=== PATIENT | female | born 1945 | race Caucasian/White ===

== ENCOUNTER 2019-11-11 08:52 | Observation (INO) ==
--- NOTE | 2019-10-22 16:21 | PAT Medication Instructions ---
Medication Instructions Date of Service October 22, 2019 Home Medications acetaminophen [Tylenol Arthritis Pain] 650 mg PO Q12H amlodipine 5 mg PO QPM aspirin [Aspir-81] 81 mg PO QPM atorvastatin 20 mg PO 3XWK carvedilol 6.25 mg PO BID chlorthalidone 50 mg PO QAM diclofenac sodium 2 g TOPICAL QID PRN losartan 75 mg PO HS multivitamin 1 tab PO QPM nitroglycerin [Nitrostat] 0.4 mg SUBLINGUAL UD PRN Continue as directed nitroglycerin [Nitrostat] 0.4 mg SUBLINGUAL UD PRN atorvastatin 20 mg PO 3XWK STOP taking 24 hours before surgery diclofenac sodium 2 g TOPICAL QID PRN DO NOT take the morning of surgery chlorthalidone 50 mg PO QAM Take morning of surgery With a small sip of water, OTHERWISE NOTHING TO EAT OR DRINK AFTER MIDNIGHT: acetaminophen [Tylenol Arthritis Pain] 650 mg PO Q12H (okay to take up to 4 hours prior to surgery if needed) carvedilol 6.25 mg PO BID Take evening before surgery acetaminophen [Tylenol Arthritis Pain] 650 mg PO Q12H amlodipine 5 mg PO QPM aspirin [Aspir-81] 81 mg PO QPM carvedilol 6.25 mg PO BID losartan 75 mg PO HS Other Notes If you have any questions please call us at [phone] or [phone] or [phone] or [phone]
--- NOTE | 2019-10-24 14:41 | Anesthesiology Consultation ---
Date of Service October 24, 2019 Assessment & Plan (1) Encounter for pre-operative examination: - Patient seen by cardiology 10/13 (S). Awaiting note. Per PAT assessment on 10/23: Travel screen negative. No known COVID-19 positive contacts ( had preop COVID testing which was negative). No current COVID- 19 related symptoms. Surgeon arranging preop COVID testing (11/05; KAHLIL Anne). Awaiting results. Chart Review Chart Review: Acceptable Risk for Surgery and Patient NOT seen in Pre Admission Testing History Surgery Operation Date: 11/11/19 09:20 Proposed Procedures p Left Total Knee Arthroplasty - Felton Redding MD Height/Weight Height: 5 ft 2.5 in Weight: 78.3 kg Allergies Allergy/AdvReac Type Severity Reaction Status Date / Time moxifloxacin [From Avelox] Allergy Unknown hives, Verified 10/24/19 14:43 itchiness tioconazole AdvReac Unknown Rash Verified 10/17/19 09:52 [From Monistat 1 (tioconazole)] solifenacin [From Vesicare] AdvReac dizziness Verified 10/24/19 14:43 Medications Home Medications Medication Instructions Recorded Confirmed Last Taken acetaminophen [Tylenol Arthritis 650 mg PO Q12H 10/17/19 10/17/19 Unknown Pain] amlodipine 5 mg PO QPM 10/17/19 10/17/19 Unknown aspirin [Aspir-81] 81 mg PO QPM 10/17/19 10/17/19 Unknown atorvastatin 20 mg PO 3XWK 10/17/19 10/17/19 Unknown carvedilol 6.25 mg PO BID 10/17/19 10/17/19 Unknown chlorthalidone 50 mg PO QAM 10/17/19 10/17/19 Unknown diclofenac sodium 2 g TOPICAL QID PRN 10/17/19 10/17/19 Unknown losartan 75 mg PO HS 10/17/19 10/17/19 Unknown multivitamin 1 tab PO QPM 10/17/19 10/17/19 Unknown nitroglycerin [Nitrostat] 0.4 mg SUBLINGUAL UD PRN 10/17/19 10/17/19 Unknown Wheeled Walker #1 ea 10/24/19 10/24/19 Unknown Past Medical History Medical History CAD (coronary artery disease) mild, non-obstructive Degenerative arthritis of knee, bilateral GERD (gastroesophageal reflux disease) hx Hyperlipidemia Hypertension Exercise / Class Metabolic Activity III < 4 Walking/Shop/Light housework Past Family History Family History Son Family history of diabetes mellitus Mother Family history of diabetes mellitus Grandfather (Paternal) Family hx of colon cancer Grandfather (Maternal) Family hx of colon cancer Past Surgical History Surgical History History of adenoidectomy History of cardiac cath 11/30/18 ([facility]/done for evaluation of abnormal stress test)/no stents History of cholecystectomy History of colonoscopy History of esophagogastroduodenoscopy (EGD) History of hysterectomy TOTAL History of tonsillectomy Past Anesthesia History No Family Hx of Anesthesia Complications and Other ("slow to wake" ) History of PONV History of PONV and Hx of Motion Sickness Social History Smoking Status: Former smoker Do You Dip or Chew Tobacco: No Smoking End Date: QUIT IN COLLEGE Hx Alcohol Use: Yes Alcohol type: beer and wine alcohol intake frequency: holidays/special occasions only Hx Substance Use: No Review of Systems Remote hx of reflux. Patient denies chest pain, shortness of breath, fever, chills, cough, wheezing, palpitations. Physical Exam Vital Signs VITALS BP 136/75 P 61 TEMP 98.4 SP02 98%RA RESP 18 PHYSICAL Full neck and c-spine range of motion. Full TMJ range of motion. TMD 3 finger breaths Mallampati Score 2 Dentition: intact, upper left side implant, + cap on left upper side/? possible other cap as well Lungs: clear throughout to auscultation Cardiac: regular rate and rhythm, no murmurs noted Spine: normal Carotid arteries: negative bruit Extremities: no edema Testing Laboratory Results 10/24/19 14:55 10/24/19 14:55 PT 10.6 Seconds (9.0-12.0) 10/24/19 14:55 INR 1.0 (0.9-1.1) 10/24/19 14:55 APTT 26.4 Seconds (21.0-31.0) 10/24/19 14:55 Blood Type A Positive 10/24/19 14:55 Antibody Screen NEGATIVE 10/24/19 14:55 Electrocardiogram Date: 10/14/19 Findings: + SB @ (52) Chest X-Ray Date: 10/24/19 Findings: + NAD Echocardiogram Date: 12/06/16 LVEF 63%. No RWMA. Grade I-II DD. Mildly increased cLV wall thickness. Mild TR/SC. Mild LAE. Stress Test Date: 11/26/18 Type: exercise Stress echo positive for inducible ischemia. Moderate sized anterior, posterior and lateral wall motion abnormalities with HK of segments. 5.0 METS. LVEF 67%. Mild TR. 98% MPHR. Subsequent cardiac cath done 11/30/18 with mild, non- obstructive disease. Cardiac Catheterization Date: 11/30/18 Mild non-obstructive disease with minor luminal irregularities. 30% pLAD lesion. Risk factor and life style modification recommended.
--- NOTE | 2019-10-24 15:19 | XRay Report ---
XR chest Pre-admission PA/Lat CLINICAL HISTORY: pat preoperative COMPARISON STUDY: No previous studies for comparison. FINDINGS: The bones soft tissues and hemidiaphragms are normal. The cardiomediastinal silhouette is n ormal. The lungs are clear. The pulmonary vasculature is normal. IMPRESSION: Negative chest. ACT 112: Negative or not required by law. The above report was generated using voice recognition software. It may contain grammatical, syntax or spelling errors. Electronically signed by: Pj Saavedra M.D. 10/24/2019 3:17 PM
[2019-10-24 15:46] LABS: Basophils # (auto) 0.02 K/uL (0-0.2); Basophils % (auto) 0.3 %; Eosinophils # (auto) 0.16 K/uL (0-0.5); Eosinophils % (auto) 2.4 %; Hematocrit (blood only) 39.7 % (37-47); Hemoglobin 13.1 g/dL (12.0-16.0); Lymphocytes # (auto) 1.94 K/uL (1.2-3.4); Monocytes # (auto) 0.68 K/uL (0.11-0.59); Monocytes % (auto) 10.2 %; Neutrophils # (auto) 3.88 K/uL (1.4-6.5); Neutrophils % (auto) 58.1 %; Platelet Count 317 K/uL (130-400); RDW Coefficient of Variation 13.1 % (11.5-14.5); RDW Standard Deviation 41.6 fL (36.4-46.3); Red Blood Count 4.51 M/uL (4.2-5.4); White Blood Count 6.68 K/uL (4.8-10.8)
[2019-10-24 15:52] LABS: BUN Creatinine Ratio 20.8 (10-20); Calcium 9.6 mg/dl (8.5-10.1); Creatinine Clr Calc Pharmacy 53.3 ml/min; Est GFR (Non-African American) 63.8; Potassium 3.6 mmol/L (3.5-5.1)
[2019-10-24 15:58] LABS: Partial Thromboplastin Ratio 0.9; Partial Thromboplastin Time 26.4 Seconds (21.0-31.0); Prothrombin Time 10.6 Seconds (9.0-12.0)
[~2019-11-11 08:52] MED LIST: BUPIVACAINE 0.5 % 5 MG/1 ML PF 10ML VIAL ONE; BUPIVACAINE/EPINEPHRINE 0.25% 1:200,000 30 ML VIAL ONE; LR 500ML BOLUS, THEN 15ML/HR IV SCH; LR 60ML/HR IV SCH; MISSING PHYSICIAN SIGNATURE ON ORDER SCH; ceFAZolin 2000MG 2,000 MG/15 ML SYR IV SCH
--- NOTE | 2019-11-11 09:07 | History & Physical Bridge Note ---
Date of Service November 11, 2019 History & Physical Bridge Note I have examined the patient, reviewed the History & Physical and in the interval since the performance of the History & Physical I have noted the following changes of clinical significance: no changes noted
[2019-11-11] MEDS ORDERED: ceFAZolin 2,000 MG/15 ML IV PUSH IV ONE (09:23)
[2019-11-11] MEDS ORDERED: ACETAMINOPHEN 500 MG TAB ONE (09:23)
[2019-11-11] MEDS ORDERED: GABAPENTIN 300 MG CAP ONE (09:24)
[2019-11-11] MEDS ORDERED: FAMOTIDINE 20 MG TAB ONE (09:24)
[2019-11-11] MEDS ORDERED: METOCLOPRAMIDE HCL 10 MG TABLET ONE (09:25)
[2019-11-11] MEDS ORDERED: TRANEXAMIC ACID / 0.7% NACL 1000MG/100ML BAG IV ONE (09:25)
[2019-11-11] MEDS ORDERED: LIDOCAINE HCL 2% 2 ML VIAL/AMP(20MG/ML) INFIL ONE (10:04)
[2019-11-11] MEDS ORDERED: PROPOFOL IV EMULSION 10 MG/ML 20 ML VIAL IV ONE ×2 (10:04→12:39)
[2019-11-11] MEDS ORDERED: MIDAZOLAM HCL 1 MG/ML 2ML VIAL ONE (10:04)
[2019-11-11] MEDS ORDERED: ePHEDrine sulfate 50 MG/ML AMP IV PRN (10:25)
[2019-11-11] MEDS ORDERED: ATROPINE SULFATE 0.1 MG/ML 10ML SYR IV PRN (10:25)
[2019-11-11] MEDS ORDERED: ONDANSETRON INJ 2 MG/ML 2 ML VIAL IV PRN ×2 (10:25→13:35)
[2019-11-11] MEDS ORDERED: HYDROmorphone INJ 2 MG/ML SYR/VIAL IV PRN (10:25)
[2019-11-11] MEDS ORDERED: PROMETHAZINE HCL 12.5 MG in SODIUM CHLORIDE 0.9% 50 ML IV PRN (10:25)
[2019-11-11] MEDS ORDERED: fentaNYL citrate 100 MCG/2 ML VIAL IV PRN (10:25)
[2019-11-11] MEDS ORDERED: BACITRACIN INJ 50,000 UNIT VIAL ONE (10:32)
[2019-11-11] MEDS ORDERED: SODIUM CHLORIDE 0.9% PF 50 ML VIAL ONE (10:32)
[2019-11-11] MEDS ORDERED: BUPIVACAINE LIPOSOME 1.3% 266 MG/20 ML VIAL ONE (10:32)
[2019-11-11] MEDS ORDERED: BUPIVACAINE/EPINEPHRINE 0.25% 1:200,000 30 ML VIAL ONE (10:32)
[2019-11-11] MEDS: BUPIVACAINE LIPOSOME/PF 266 MG, BUPIVACAINE/EPINEPHRINE 50 ML, SODIUM CHLORIDE 0.9% 30 ... INFIL SCH (11:40)
[2019-11-11] MEDS: TRANEXAMIC ACID 1,000 MG **IV Intra-op IV SCH (12:13)
--- NOTE | 2019-11-11 12:46 | Post Operative Brief Note ---
PG Immediate Post Op with CF Date of Surgery November 11, 2019 Pre & Post Diagnosis Operation Date: 11/11/19 11:10 Pre-Op Diagnosis: Left Knee Advanced Degenerative Joint Disease Post-Op Diagnosis: Left Knee Advanced Degenerative Joint Disease I identified the patient and participated in the time-out.: Yes Procedure Operation Date: 11/11/19 11:10 Actual Procedures p Left Total Knee Arthroplasty(Left) - Felton Redding MD Surgeon Felton Redding MD Sulphate Tester Farhana, PAC Estimated Blood Loss 50 Findings Consistent with Post-Op Diagnosis Fluids 1000 cc Specimens Specimen Description: A. Right Knee Bone and Tissue Drains Pena Catheter Anesthesia Type Spinal MAC Complications none Disposition Accompanied Patient To Recovery: No Disposition: Recovery Room
--- NOTE | 2019-11-11 13:27 | XRay Report ---
XR knee LT 1 or 2V routine CLINICAL HISTORY: Postoperative evaluation. COMPARISON: Knee radiographs August 01, 2019. FINDINGS: Alignment of the total left knee arthroplasty is anatomic. There is no periprosthetic frac ture or unexpected radiopaque foreign body. There are skin feroz. IMPRESSION: Expected findings following total left knee arthroplasty. ACT 112: Negative or not required by law. Electronically signed by: Jameson Ruffin M.D. 11/11/2019 1:26 PM
[2019-11-11] MEDS ORDERED: NALOXONE HCL 0.4 MG/1 ML VIAL/CARP IV PRN (13:35)
[2019-11-11] MEDS ORDERED: METOCLOPRAMIDE HCL INJ 5 MG/ML 2 ML VIAL IV PRN (13:35)
[2019-11-11] MEDS ORDERED: NITROGLYCERIN SL 0.4 MG/TAB TAB SL PRN (13:35)
[2019-11-11] MEDS ORDERED: MAGNESIUM HYDROXIDE SUSP 30 ML UDC PO PRN (13:35)
[2019-11-11] MEDS ORDERED: HYDROmorphone INJ 0.5 MG/0.5 ML SYR IV PRN (13:35)
[2019-11-11] MEDS: SODIUM CHLORIDE 0.9% 1000ML 1,000 ML IV SCH ×2 (13:35→17:32)
[2019-11-11] MEDS ORDERED: bisacodyL 10 MG SUPP PR PRN (13:35)
--- NOTE | 2019-11-11 13:55 | Anesthesiology Progress Note ---
Date of Service November 11, 2019 Anesthesia Post Procedure Vital Signs Vital Signs: Temp Pulse Pulse Resp BP Pulse Ox 11/11/19 13:35 36.3 C L 72 18 148/75 H 96 11/11/19 13:25 72 20 133/67 93 11/11/19 13:15 36.4 C L 63 12 124/61 95 11/11/19 13:05 64 12 131/59 L 97 11/11/19 12:55 66 16 119/75 96 11/11/19 12:49 36.1 C L 75 14 116/50 L 98 11/11/19 09:50 36.8 C 68 20 168/74 H 97 Transfer of Care Handoff Completed per policy Notes Mental Status: alert / awake / arousable and participated in evaluation Patient Amnestic to Procedure: Yes Nausea / Vomiting: adequately controlled Pain: adequately controlled Airway Patency, RR, SpO2: stable & adequate BP & HR: stable & adequate Hydration State: stable & adequate Anesthetic Complications: no major complications apparent and Pt Satisfied with anesthetic care
[2019-11-11] MEDS: GABAPENTIN 300 MG CAP PO SCH (13:57)
[2019-11-11] MEDS: METOCLOPRAMIDE HCL 10 MG TABLET PO SCH (13:57)
[2019-11-11] MEDS: ACETAMINOPHEN 500 MG TAB PO SCH ×3 (13:57→21:08)
[2019-11-11] MEDS: FAMOTIDINE 20 MG TAB PO SCH (13:57)
[2019-11-11] MEDS: ATORVASTATIN 20 MG TAB PO SCH (14:57)
--- NOTE | 2019-11-11 16:59 | Operative Report ---
Post Operative Report Pre & Post Diagnosis Operation Date: 11/11/19 11:10 Pre-Op Diagnosis: Left Knee Advanced Degenerative Joint Disease Post-Op Diagnosis: Left Knee Advanced Degenerative Joint Disease I identified the patient and participated in the time-out.: Yes Procedure Operation Date: 11/11/19 11:10 Actual Procedures p Left Total Knee Arthroplasty(Left) - Felton Redding MD Surgeon Felton Redding MD Laborer Electroplating Farhana, PAC Estimated Blood Loss 50 Findings Consistent with Post-Op Diagnosis Operative findings revealed advanced left knee DJD. She had extensive grade 4 ganh-cy-innk disease primarily in the medial compartment but some spotty changes elsewhere. She had a varus deformity to her knee. Large knee joint effusion. The patient did have a very stiff knee with about a 15 to 20 degree flexion contracture and could only bend about 100 degrees. Fluids 1000 cc. Specimens Left knee sent for pathology. Drains None. Complications none Disposition Accompanied Patient To Recovery: No Disposition: Recovery Room Indications Patient is a 74-year-old female is had a long history of bilateral knee pain discomfort left side quite bit worse than the right. This is been through extensive conservative treatment which is become less successful over time. She is really limited by her pain and discomfort. X-rays show advanced DJD position. She elected proceed with surgical treatment. Description of Procedure Operative implants consist of: 1. Biomet Vanguard size 62.5 left Po stabilized femoral component. 2. Biomet size 67 tibial tray. 3. 10 mm posterior stabilized polyethylene insert. 4. 31 x 8 all poly-patella. The patient was taken to the operating identified placed on the operating table supine position protectors were properly padded. IV antibiotics arrived by anesthesia team. A spinal anesthetic and abductor canal block had provided in the holding area. Pena catheter was placed in sterile fashion. Left thigh tip was then placed in the left lower extremities and prepped and draped in the usual sterile fashion. The left leg was elevated exsanguinated with use of an Esmarch interspace at 3 mmHg. An anterior approach to the left knee was then performed to longitudinal incision centered with the patella. Sharp dissection was got through subcutaneous is down to the extensor mechanism. A medial parapatellar arthrotomy incision was made. Some subperiosteal dissection was carried out medially. We. We did do a pretty extensive dissection posterior medially due to her significant flexion contracture. The fat pad was dissected from any the patella tendon. Lateral patellofemoral ligament was released. Patella was subluxated laterally and the knee was flexed. The osteophytes were taken off distal femur P the ACL PCL were then released from distal femur the tibia subluxate anteriorly. External tibial alignment jig was then placed in the interface the tibia and adjusted 14 mm medially. Proximal tibial cut was made remove about 2 mm of bone off the most efficient aspect of the medial side. Tib ia sized to a size 67. Attention drawn the femur. The distal femur was entered with a sharp drop with intramedullary canal was suction. A 5 degree distal femoral valgus cutting guide was placed the distal femoral cut was made to take an additional 3 mm bone off distal femur. The femur was sized to a size 62.5. The AP cutting block was pinned parallel to the epicondylar axis which was 3 degrees of external rotation. Anterior cut, anterior chamfer, posterior cut, posterior chamfer cuts were made. Box cutting guide was placed in just slight lateral box cut was made. The knee was flexed. The remnants of the medial lateral menisci were excised. The osteophytes were taken off the posterior aspect the femur. A trial femoral component was placed but the tibial tray was pinned in maximum external rotation and the drill and stem punch were used to create defect in proximal tip for the tibial tray. The knee was then trialed the 10 mm insert fit most appropriately. Attention drawn the patella. Nupathe patella was cleaned of all soft tissues. Patella thickness measured 19 mm in thickness was cut down to 12 mm. It was sized to a size 31 patella. Locals were drilled for 31 patella. The lateral osteophyte is moved. Patella button was placed. Knee was taken through range of motion patella tracked nicely with no thumbs test. Attention turned to placing permanent components. If all trial components removed. Bone plug was placed in the disc femur limit blood loss put a double batch Pal[place]os G cement was mixed. Biomet Vanguard size 62.5 left Po stabilized femoral component, size 67 tibial tray, 10 mm posterior box polyethylene insert, and a 31 x 8 all poly-patella were then cemented in place. Knees brought under full extension total cement hardened. Final cement check was then performed. The pericapsular tissues were injected with a total of 100 cc of combination of 20 cc of Exparel, 30 cc normal saline, 50 cc of quarter percent Marcaine with epinephrine. Patient did receive 1 g tranexamic acid per the tech was then let down for final turn time 52 minutes but hemostasis assured use electrocautery. Extensor mechanism closed with combination 1 PDS suture and #1 Vicryl suture in [id number] fashion for extensor mechanism checked found to be intact the subcutaneous tissue then closed 2 Dexon suture in a buried interrupted fashion skin was closed skin feroz. Leg was then cleaned dried a sterile dressing composed Xeroform, 4 x 4's, sterile cast padding, Matthew bandage were applied. Patient then transferred to the recovery room in stable condition. Patient tolerated procedure well and there are no complications. The Farhana, my physician bilingual sales assistant, was present for the entire procedure. His assistance was required for essential positioning the patient, prepping and draping, surgical exposure, performing the technical details of the operation, placing the implants, closure of the wound, and placement of a sterile bandage. I attest to the content of the Intraoperative Record and any orders documented therein. Any exceptions are noted below.
[2019-11-11] MEDS: FERROUS GLUCONATE 324 MG TAB PO SCH (17:20)
[2019-11-11] MEDS: KETOROLAC TROMETHAMINE 15 MG/ML VIAL IV SCH ×2 (17:20→23:32)
[2019-11-11] MEDS: ASCORBIC ACID 500 MG TAB PO SCH (17:20)
[2019-11-11] MEDS: ceFAZolin 1000MG 1,000 MG/7.5 ML SYR IV SCH (17:25)
[2019-11-11] MEDS ORDERED: TRANEXAMIC ACID / 0.7% NACL 1,000 MG/100 ML BAG IV SCH (18:49)
[2019-11-11] MEDS: MULTIVITAMIN TAB PO SCH (21:08)
[2019-11-11] MEDS: ASPIRIN 81 MG ECTAB PO SCH (21:08)
[2019-11-11] MEDS: LOSARTAN POTASSIUM 25 MG TAB PO SCH (21:08)
[2019-11-11] MEDS: amLODIPine BESYLATE 5 MG TAB PO SCH (21:08)
[2019-11-11] MEDS: carvediloL 6.25 MG TAB PO SCH (21:09)
[2019-11-11] MEDS: SENNA 8.6 MG TAB PO SCH (21:09)
[2019-11-11] MEDS: DOCUSATE SODIUM 100 MG CAP PO SCH (21:09)
[2019-11-11] MEDS: traMADol HCL 50 MG TABLET PO PRN (23:33)
[2019-11-12] MEDS: GABAPENTIN 300 MG CAP PO SCH (02:01)
[2019-11-12] MEDS: METOCLOPRAMIDE HCL 10 MG TABLET PO SCH (02:01)
[2019-11-12] MEDS: BUPIVACAINE LIPOSOME/PF 266 MG, BUPIVACAINE/EPINEPHRINE 50 ML, SODIUM CHLORIDE 0.9% 30 ... INFIL SCH (02:01)
[2019-11-12] MEDS: FAMOTIDINE 20 MG TAB PO SCH (02:01)
[2019-11-12] MEDS: TRANEXAMIC ACID 1,000 MG **IV Intra-op IV SCH (02:02)
[2019-11-12] MEDS: ACETAMINOPHEN 500 MG TAB PO SCH ×4 (02:02→21:13)
[2019-11-12] MEDS: ceFAZolin 1000MG 1,000 MG/7.5 ML SYR IV SCH (02:36)
[2019-11-12] MEDS: KETOROLAC TROMETHAMINE 15 MG/ML VIAL IV SCH ×3 (05:19→17:58)
[2019-11-12] MEDS ORDERED: TRANEXAMIC ACID 1,000 MG **IV Intra-op IV SCH (06:00)
[2019-11-12 06:02] LABS: Hematocrit (blood only) 32.7 % (37-47); Hemoglobin 11.2 g/dL (12.0-16.0); Mean Corpuscular Hemoglobin 29.4 pg (25-34); Mean Corpuscular Hgb Conc 34.3 g/dL (32-36); Mean Corpuscular Volume 85.8 fL (80-100); Mean Platelet Volume 9.1 fL (7.4-10.4); Platelet Count 248 K/uL (130-400); RDW Coefficient of Variation 12.6 % (11.5-14.5); RDW Standard Deviation 39.8 fL (36.4-46.3); Red Blood Count 3.81 M/uL (4.2-5.4); White Blood Count 7.29 K/uL (4.8-10.8)
[2019-11-12 06:33] LABS: BUN Creatinine Ratio 21.9 (10-20); Calcium 8.2 mg/dl (8.5-10.1); Creatinine Clr Calc Pharmacy 69.1 ml/min; Est GFR (African American) 98.5; Potassium 3.2 mmol/L (3.5-5.1)
[2019-11-12] MEDS: traMADol HCL 50 MG TABLET PO PRN ×3 (08:26→21:11)
[2019-11-12] MEDS: CHLORTHALIDONE 25 MG TAB PO SCH (08:27)
[2019-11-12] MEDS: ASCORBIC ACID 500 MG TAB PO SCH ×2 (08:27→17:57)
[2019-11-12] MEDS: DOCUSATE SODIUM 100 MG CAP PO SCH ×2 (08:28→21:11)
[2019-11-12] MEDS: carvediloL 6.25 MG TAB PO SCH ×2 (08:28→21:11)
[2019-11-12] MEDS: ASPIRIN 81 MG ECTAB PO SCH ×2 (08:28→21:11)
[2019-11-12] MEDS: FERROUS GLUCONATE 324 MG TAB PO SCH ×2 (08:28→17:57)
[2019-11-12] MEDS ORDERED: MULTIVITAMIN TAB PO SCH (09:00)
[2019-11-12] MEDS ORDERED: POTASSIUM CHLORIDE CRTAB 20 MEQ TABCR PO ONE ×2 (11:00→18:00)
--- NOTE | 2019-11-12 11:16 | Progress Notes ---
DATE: 11/12/2019 SUBJECTIVE: A 74-year-old white female postop day 1 from left knee replacement. She is doing pretty well. Pain has been manageable. No chest pain or shortness of breath. Not feeling dizzy or lightheaded. OBJECTIVE: VITAL SIGNS: Temperature 36.9. Vital signs stable. GENERAL: Physical examination shows a pleasant elderly female. She is sitting up in bed, looks pretty comfortable. LUNGS: Clear to auscultation. HEART: Has a regular rate and rhythm. ABDOMEN: Soft, nontender, nondistended. EXTREMITIES: Grossly neurovascularly intact except as follows. Examination of the left lower extremity reveals the dressing to be clean, dry and intact. Leg is well aligned. She can dorsiflex and plantarflex her foot appropriately. She is neurologically intact. LABORATORY DATA: Hemoglobin is 11.2. Hematocrit 32.7. Electrolytes are stable. Potassium is little bit low at 3.2. ASSESSMENT: A 74-year-old white female postop day 1 from left knee replacement, doing pretty well. Pain is controlled. She is neurologically intact. Potassium is little bit low and we will supplement that. PLAN: 1. DVT prophylaxis include thigh-high TEDs, SCDs and aspirin twice a day. 2. PT/OT, weightbear as tolerated. Left total knee protocol. 3. Pain control, doing well with current pain regimen. 4. Hypokalemia. We will supplement her potassium today. 5. Disposition: She is planning to be discharged to home likely with some home health once adequately recovered and medically stable. She is going to use [facility] home health.
[2019-11-12] MEDS: MULTIVITAMIN TAB PO SCH (21:11)
[2019-11-12] MEDS: SENNA 8.6 MG TAB PO SCH (21:12)
[2019-11-12] MEDS: LOSARTAN POTASSIUM 25 MG TAB PO SCH (21:13)
[2019-11-12] MEDS: amLODIPine BESYLATE 5 MG TAB PO SCH (22:07)
[2019-11-13] MEDS: KETOROLAC TROMETHAMINE 15 MG/ML VIAL IV SCH ×2 (00:05→05:10)
[2019-11-13] MEDS: ALUMINUM/MAGNESIUM SUSP 30 ML UDC PO PRN ×2 (00:22→07:47)
[2019-11-13] MEDS: ACETAMINOPHEN 500 MG TAB PO SCH (05:10)
[2019-11-13 07:15] LABS: BUN Creatinine Ratio 26.7 (10-20); Calcium 8.4 mg/dl (8.5-10.1); Creatinine Clr Calc Pharmacy 67.1 ml/min; Est GFR (African American) 97.5; Est GFR (Non-African American) 84.2; Potassium 3.9 mmol/L (3.5-5.1)
[2019-11-13] MEDS: traMADol HCL 50 MG TABLET PO PRN (07:42)
[2019-11-13] MEDS: ATORVASTATIN 20 MG TAB PO SCH (07:43)
[2019-11-13] MEDS: ASPIRIN 81 MG ECTAB PO SCH (07:43)
[2019-11-13] MEDS: CHLORTHALIDONE 25 MG TAB PO SCH (07:43)
[2019-11-13] MEDS: DOCUSATE SODIUM 100 MG CAP PO SCH (07:43)
[2019-11-13] MEDS: ASCORBIC ACID 500 MG TAB PO SCH (07:44)
[2019-11-13] MEDS: carvediloL 6.25 MG TAB PO SCH (07:44)
[2019-11-13] MEDS: FERROUS GLUCONATE 324 MG TAB PO SCH (07:44)
--- NOTE | 2019-11-13 09:08 | Progress Notes ---
DATE: 11/13/2019 SUBJECTIVE: A 74-year-old white female postop day 2 from a left knee replacement. She is doing pretty well. Pain is controlled. Therapy is going okay. No chest pain or shortness of breath. Not feeling dizzy or lightheaded. OBJECTIVE: VITAL SIGNS: Temperature 37.2. Vital signs stable. GENERAL: Shows a pleasant elderly female. She is sitting up in her bedside chair, looks pretty comfortable this morning. EXTREMITIES: Examination of the left leg reveals the dressing to be clean, dry and intact. Calf is soft and supple. She is neurologically intact. LABORATORY DATA: Potassium is improved at 3.9. ASSESSMENT: A 74-year-old white female postop day 2 from a left knee replacement. Potassium is improved. Pain is controlled. She is neurologically intact. PLAN: 1. DVT prophylaxis including thigh-high TEDs, SCDs, and aspirin twice a day. 2. PT/OT. Weight bear as tolerated. Left total knee protocol. 3. Pain control, doing okay with current pain regimen. 4. Disposition: Plan to discharge to home later today with some home health from [facility].
--- NOTE | 2019-11-17 10:23 | Discharge Summary ---
Date of Service November 17, 2019 Admission HPI Per Admitting Provider Documented in the H & P Admission Exam (Per Admitting) Constitutional Documented in the H & P Discharge Data Consultations 11/11/19 13:35 Consult Case Management - Discharge Planning Routine Procedures Performed Operation Date: 11/11/19 11:10 Actual Procedures p Left Total Knee Arthroplasty(Left) - Felton Redding MD Hospital Course (1) Status post total left knee replacement: This patient is a 74 year old female admitted on 11/11/19 and underwent total knee arthroplasty. She tolerated the procedure well and there were no complications. Transferred to the PACU post op and later to the orthopedic floor for further care. She was given ancef for antibiotic prophylaxis. She was also given ANTWON stockings, SCDs, and aspirin for DVT prophylaxis. Hemoglobin, hematocrit, and vital signs were monitored during her hospital stay and remained stable. Did not require any blood transfusions.There were no complications during their hospital stay. By post op day #2 the patient was tolerating a regular diet, pain was reasonably controlled with oral pain medicine, and she was participating in physical therapy. On post op day #2 the patient was discharged home and set up with home health care. She was given printed discharge instructions including prescriptions for extra strength tylenol, aspirin, and tramadol. Continue physical therapy, weight bearing as tolerated. Continue ANTWON stockings. Follow up approximately 2 weeks post op or sooner if there are problems or concerns. Coding Level of Care Code None Diagnoses Status post total left knee replacement Z96.652
== END 2019-11-13 12:55 | disposition home health service (06) ==
LOC: 3E 08:52 → ASU 08:52

== ENCOUNTER 2021-07-12 06:16 | Observation (INO) ==
--- NOTE | 2021-07-07 15:03 | Anesthesiology Consultation ---
Date of Service July 07, 2021 Assessment & Plan (1) Encounter for pre-operative examination: - check BSG am DOS. - cardiology video visit [facility]: "...Controlled Hypertension- BP Goal: <140/90- Tolerating Coreg 3.125 mg BID...At last appointment, dose of coreg was reduced to 3.125mg BID due to the patient feeling dizzy and weak. Patient states that she has been doing well with the dose decrease and vitals have been stable in averaging in 130s/60-70s and HR averaging 60-70s. Denies any dizziness or weakness...Non obstructive CAD-Continue current medications...Nqu-Ksbniqxs-Vzxiytmk initiation of metformin in future if glycemic control does not improve...Diarrhea (resolved)-Has resolved since last appt-Believes it was dietary related-Colonoscopy pending..." - COVID screening: Per title clerk automobile on 07/07/2021: Travel screen negative, no known COVID-19 positive contacts or current COVID-19 related symptoms in past 2 weeks. Patient vaccinated. Surgeon arranging preop COVID testing, scheduled 07/08/2021. Awaiting results. Chart Review Chart Review: Acceptable Risk for Surgery and Patient NOT seen in Pre Admission Testing History Surgery Operation Date: 07/12/21 07:00 Proposed Procedures p Right Total Knee Replacement - Felton Redding MD Surgery re-scheduled since 03/2021 anesthesia review due to COVID 19 restrictions. Height/Weight Height: 5 ft 3 in Weight: 81.647 kg Allergies Allergy/AdvReac Type Severity Reaction Status Date / Time moxifloxacin [From Avelox] Allergy Unknown hives, Verified 07/07/21 12:11 itchiness solifenacin [From Vesicare] AdvReac Mild dizziness Verified 07/07/21 12:11 atropine AdvReac Unknown Weakness Verified 07/07/21 12:11 tioconazole AdvReac Unknown Rash Verified 07/07/21 12:11 [From Monistat 1 (tioconazole)] Medications Home Medications Medication Instructions Recorded Confirmed Last Taken chlorthalidone 50 mg tablet 50 mg PO QAM 10/17/19 07/07/21 11/10/19 08:00 diclofenac sodium 1 % topical gel 2 g TOPICAL QID PRN 10/17/19 07/07/21 1 Week Ago ~11/04/19 multivitamin 1 tab PO QPM 10/17/19 07/07/21 11/10/19 19:00 nitroglycerin 0.4 mg sublingual 0.4 mg SUBLINGUAL UD PRN 10/17/19 07/07/21 Unknown tablet (Nitrostat) Wheeled Walker #1 ea 10/24/19 07/07/21 Unknown tramadol 50 mg tablet 50 - 100 mg PO Q6H PRN #40 tab 11/12/19 07/07/21 Unknown amoxicillin 500 mg tablet 2,000 mg PO ONCE #4 tab 10/14/20 07/07/21 Unknown losartan 50 mg tablet 50 mg PO BID 03/08/21 07/07/21 Unknown naproxen sodium 220 mg capsule 220 mg PO HS 03/08/21 07/07/21 Unknown (Aleve) aspirin 81 mg PO DAILY 03/29/21 07/07/21 Unknown loperamide 1 dose PO DAILY PRN 03/29/21 07/07/21 Unknown melatonin 5 mg PO HS PRN 03/29/21 07/07/21 Unknown acetaminophen 325 mg tablet 325 mg PO QID PRN 07/07/21 07/07/21 Unknown atorvastatin 20 mg tablet 20 mg PO UD 07/07/21 07/07/21 Unknown carvedilol 3.125 mg tablet 3.125 mg PO BID 07/07/21 07/07/21 Unknown Past Medical History Medical History CAD (coronary artery disease) mild, non-obstructive, 30% lesion proximal LAD per 2019 cath Degenerative arthritis of knee, bilateral GERD (gastroesophageal reflux disease) controlled, stable per pt Hyperlipidemia Hypertension controlled, stable per pt Prediabetes A1c 6.2% per [facility] records Past Family History Family History Son Family history of diabetes mellitus Mother Family history of diabetes mellitus Grandfather (Paternal) Family hx of colon cancer Grandfather (Maternal) Family hx of colon cancer Past Surgical History Surgical History History of adenoidectomy History of cardiac cath 11/30/18 (S/done for evaluation of abnormal stress test)/no stents History of cholecystectomy History of colonoscopy History of esophagogastroduodenoscopy (EGD) History of hysterectomy TOTAL History of tonsillectomy History of total left knee replacement 11/11/2019: SAB at L3-L4, 1 attempt + PNB. No issues per anesthesia postop progress note. Past Anesthesia History Other (slow to wake) History of PONV History of PONV Social History Smoking Status: Never smoker Do You Dip or Chew Tobacco: No Hx Alcohol Use: Yes Alcohol type: wine alcohol intake frequency: holidays/special occasions only Hx Substance Use: No substance use type: does not use Review of Systems Snoring, denies witnessed apneas or sleep studies. Occasional nonproductive cough in morning if experiencing postnasal drip. Physical Exam Vital Signs Vitals BP 144/75 P 61 TEMP 98.3 SP02 97% on RA RESP 17 Physical (from 03/29/2021) Full cervical extension range of motion without pain Full TMJ range of motion TMD 3.5 finger breaths Mallampati Score 2 Dentition: intact, missing right upper side and left lower back; implant left upper side, multiple caps upper and lower sides and back; denies loose or chipped teeth or bridges Lungs: normal respiratory effort. Clear throughout to auscultation, no adventitious breath sounds Cardiac: regular rate and rhythm, no murmurs noted Carotid arteries: negative bruit bilat Extremities: no distal extremity edema Testing Electrocardiogram Date: 03/29/21 Sinus bradycardia, rate 58 bpm. Rightward axis. Chest X-Ray Date: 03/29/21 No lines and tubes are seen. The cardiomediastinal silhouette is normal. The lungs are clear. No evidence of pleural effusion or pneumothorax. IMPRESSION: No acute chest disease. Stress Test Date: 12/06/18 Positive for inducible ischemia (Pt subsequently underwent cath which demonstrated mild, non-obstructive CAD) Moderate anterior posterior and lateral wall motion abnormality with hypokinesis of the segments METS 5 MPHR 98% EF 67% Mild tricuspid regurgitation Trace aortic regurgitation Grade I diastolic dysfunction Mild pulmonic regurgitation Cardiac Catheterization Date: 11/30/18 The coronary arteries have mild non-obstructive disease with minor luminal irregularities Left main: mildly diseased LAD: 30% lesion in proximal LAD, mildly diseased Cx: mildly diseased RCA: mildly diseased
--- NOTE | 2021-07-09 14:08 | History and Physical Report ---
DATE OF ADMISSION: 07/12/2021 CHIEF COMPLAINT: Persistent right knee pain and discomfort. HISTORY OF PRESENT ILLNESS: The patient is a 76-year-old female who now presents for surgical treatm ent of her right knee. She has got a long history of knee problems and had her left knee replaced ju st about 2 years ago. She has done pretty well from this. She had a pretty rough initial course, bu t is doing well now. She continues to be disabled by right knee pain and discomfort. She describes it has gotten worse over the past year. She is treated with injections, which helped a little bit, b ut only lasts for a very short period of time. She describes her knee is tight and swollen. She velasco ps more as the day goes on. She can only walk a couple of blocks before she has to sit down. She wo uld like to have her right knee replaced. PAST MEDICAL HISTORY: Includes, 1. Elevated cholesterol. 2. Hypertension. 3. Coronary artery disease, status post cardiac catheterization done at [facility]. 4. Gastroesophageal reflux disease. 5. Mild obesity, BMI is 32. PAST SURGICAL HISTORY: Includes, 1. Hysterectomy. 2. Tonsillectomy. 3. Cholecystectomy. 4. Left knee replacement done on 11/11/2019. ALLERGIES: 1. AVELOX. 2. VESICARE. 3. MONISTAT. CURRENT MEDICATIONS: Include, 1. Carvedilol 6.25 mg twice a day. 2. Chlorthalidone. 3. Centrum Silver. 4. Aspirin. 5. Losartan. 6. Diclofenac gel. SOCIAL HISTORY: A 76-year-old white female. Lives in [place]. She is . Does not smoke. FAMILY HISTORY: Significant for diabetes, heart disease, colon cancer, blood clots. REVIEW OF SYSTEMS: Negative for diabetes, neurologic problem, vascular problem, or bleeding disorder s. Denies any chest pain or shortness of breath. No history of DVT or PE. No known bleeding proble ms. PHYSICAL EXAMINATION: GENERAL: Shows a pleasant, elderly female. Looks to be in pretty good health. HEENT: Benign. NECK: Supple. No lymphadenopathy. LUNGS: Clear to auscultation. HEART: Has a regular rate and rhythm. ABDOMEN: Soft, nontender, nondistended. EXTREMITIES: Grossly neurovascularly intact except as follows: Examination of both knees reveals th e patient walks independently. Examination of the right knee reveals a moderate to large knee joint effusion. Moderate soft tissue envelope. Her range of motion is about 10 degrees short of full exte nsion to about 100 degrees of flexion. Fairly stiff knee. No pain with hip motion. Examination of the left knee reveals a well-healed incision. She has anatomic alignment to her knee. Range of motion is 0-120. Good straight leg raise. X-RAYS: X-rays of the right knee reveal advanced right knee DJD. She has got slight valgus alignmen t to her knee with osteophytes laterally. Diffuse osteopenia. Multiple loose bodies in her knee. T he left knee replacement looks in good position without signs of problems. ASSESSMENT: A 76-year-old white female almost 2 years out from a left knee replacement with advanced right knee degenerative joint disease. She has failed conservative treatment and would like to have her right knee replaced. PLAN: We will take her to the operating room and do right total knee replacement. The risks and demetrius efits of this procedure were explained to the patient and include, but not limited to DVT, PE, , infection, neurological injury, vascular injury, bleeding problem, pain, limited range of motion, st iffness, failure to relieve her symptoms, incomplete relief of symptoms, need for further surgery in the future, fracture, leg length inequality, nerve palsy, etc. The patient understands and desires t o proceed. Informed consent was obtained. She knows to stop her diclofenac 2 weeks preop. She will take the carvedilol on the morning of surge ry with a sip of water. She is planning to be discharged to home using [facility]. She will f peggy up in the clinic at 2 weeks postop. Job ID: [id number]
[~2021-07-12 06:16] MED LIST changes: +ACETAMINOPHEN 500 MG TAB PO SCH; -BUPIVACAINE 0.5 % 5 MG/1 ML PF 10ML VIAL ONE; +BUPIVACAINE LIPOSOME/PF 266 MG, BUPIVACAINE/EPINEPHRINE 50 ML, SODIUM CHLORIDE 0.9% 30 ... INFIL SCH; -BUPIVACAINE/EPINEPHRINE 0.25% 1:200,000 30 ML VIAL ONE; +FAMOTIDINE 20 MG TAB PO SCH; +GABAPENTIN 300 MG CAP PO SCH; -MISSING PHYSICIAN SIGNATURE ON ORDER SCH; +TRANEXAMIC ACID 1,000 MG **IV Intra-op IV SCH
[2021-07-12] MEDS ORDERED: BUPIVACAINE 0.5 % 5 MG/1 ML PF 10ML VIAL ONE (06:32)
--- NOTE | 2021-07-12 06:49 | History & Physical Bridge Note ---
Date of Service July 12, 2021 History & Physical Bridge Note I have examined the patient, reviewed the History & Physical and in the interval since the performance of the History & Physical I have noted the following changes of clinical significance: no changes noted
[2021-07-12] MEDS ORDERED: MIDAZOLAM HCL 1 MG/ML 2ML VIAL ONE ×2 (07:32→09:19)
[2021-07-12] MEDS ORDERED: PROPOFOL IV EMULSION 10 MG/ML 20 ML VIAL IV ONE ×3 (07:32→09:58)
[2021-07-12] MEDS ORDERED: ONDANSETRON INJ 2 MG/ML 2 ML VIAL IV PRN ×2 (07:57→12:05)
[2021-07-12] MEDS ORDERED: fentaNYL citrate 100 MCG/2 ML VIAL IV PRN (07:57)
[2021-07-12] MEDS ORDERED: HYDROmorphone INJ 2 MG/ML SYR/VIAL IV PRN (07:57)
[2021-07-12] MEDS ORDERED: ATROPINE SULFATE 0.1 MG/ML 10ML SYR IV PRN (07:57)
[2021-07-12] MEDS ORDERED: ePHEDrine sulfate 50 MG/ML AMP IV PRN (07:57)
[2021-07-12] MEDS ORDERED: BUPIVACAINE LIPOSOME 1.3% 266 MG/20 ML VIAL ONE (08:50)
[2021-07-12] MEDS ORDERED: BUPIVACAINE/EPINEPHRINE 0.25% 1:200,000 30 ML VIAL ONE (08:51)
[2021-07-12] MEDS ORDERED: SODIUM CHLORIDE 0.9% PF 50 ML VIAL ONE (08:51)
[2021-07-12] MEDS ORDERED: GLYCOPYRROLATE 0.2 MG/ML VIAL ONE (09:35)
--- NOTE | 2021-07-12 11:23 | Operative Report ---
PG Post Operative Report Pre & Post Diagnosis Operation Date: 07/12/21 08:50 Pre-Op Diagnosis: Right Knee Osteoarthritis Post-Op Diagnosis: Right Knee Osteoarthritis I identified the patient and participated in the time-out.: Yes Procedure Operation Date: 07/12/21 08:50 Actual Procedures p Right Total Knee Replacement(Right) - Felton Redding MD Surgeon Felton Redding MD [employer] Yury Alexandra PA-C Estimated Blood Loss 50 Findings Consistent with Post-Op Diagnosis Operative findings revealed advanced erosive tricompartment DJD with extensive grade 4 [id number] disease in all 3 compartments. Diffuse osteopenia. Large knee joint effusion. She had about a 15 to 20 degree flexion contracture and bend 125 degrees. Fluids 400 cc Specimens Right knee sent for pathology Anesthesia Type Spinal MAC Complications none Disposition Accompanied Patient To Recovery: No Indications Patient 76-year-old female said a long history of bilateral knee pain discomfort describes gotten worse over the years. She underwent a left knee replacement just about 2 years ago and is done well from that. She continued be limited by right knee pain discomfort. She Developed a progressive flexion contracture and valgus deformity to her knee. X-rays show advanced DJD. She elected proceed with total knee arthroplasty. Description of Procedure Operative implants consist of: 1 Biomet Vanguard size 62.5 right posterior stabilized femoral component. 2. Biomet size 63 tibial tray. 3. 10 mm posterior stabilized polyethylene insert. 4. 31 x 8 all polypatella. The patient was taken the operating, identified, placed on the operating table supine position protectors were properly padded. IV antibiotics tried by anesthesia team. A Pena catheter was placed in sterile fashion. A right thigh tourniquet was then placed. The right lower extremities then prepped and draped in usual sterile fashion. The right leg was elevated exsanguinated with use of an Esmarch in terms playset 300 mmHg. An anterior process of the right knee was then performed to longitudinal incision centered over the patella. Sharp dissection was carried through subcutaneous this down the extensor mechanism. A medial parapatellar arthrotomy incision was made. Some subperiosteal dissection was carried out medially. The fat pad was resected beneath patella tendon. The lateral patellofemoral ligament was released. Patella subluxated laterally and the knee was flexed. The osteophytes were taken off distal femur. The ACL and PCL then released from the distal femur the tibia subluxated anteriorly. The external tibial alignment jig was then placed the interface the tibia and adjusted 14 mm medially. Proximal tibial cut was made removed about 3 to 4 mm of bone from the medial side. The tibia was sized to a size 63. We did have to downsize this in order to get appropriate rotation. Attention drawn the femur. The distal femur was then entered with the drill. Intramedullary canal was suction. A right 5 degree valgus cutting guide was placed. Distal femoral cutting block was pinned in place. Distal femoral cut was made to take an additional 3 mm of bone off distal femur. I then brought the knee out to full extension. I did release the IT band and some of the posterior lateral joint capsule in order to equalize the extension gap. The femur was then sized to a size 62.5. We did downsize this slightly. The AP cutting block was pinned parallel to the epicondylar axis which was 3 degrees of external rotation. The anterior cut, anterior chamfer, posterior cut, posterior chamfer cuts were made. The box cutting guide was placed in just slight lateral box cut was made. The knee was flexed. The remnants of the medial and lateral menisci were excised to the osteophytes taken off the posterior aspect of the femur. I did have to release the popliteus tendon in order to equalize the flexion gap. Great care was taken throughout the procedure protect the peroneal nerve at all times. A trial femoral component was placed. The tibial tray was pinned in maximum external rotation and the drill and stem punch used to create defect in proximal tibia for the tibial tray. The knee was then trialed and the 10 mm insert fit most appropriately. Attention drawn the patella. The patella was cleaned of all soft tissues. Patella thickness measured 20 mm in thickness was cut down to 13. Was sized to a size 31 patella. The lug holes were drilled for the 31 patella. The lateral osteophyte was removed. Patella button was placed. Knee was taken through a knee range of motion patella tracked nicely with no thumbs test. Attention drawn to placing permanent components. Nupathe all trial components were removed. Bone plug was placed in the distal femur limit blood loss. Double batch Palacos G cement was mixed. BiomSpare to Shareguard size 62.5 right posterior stabilized femoral component, size 63 tibial tray, a 10 mm posterior stabilized polyethylene insert, and a 31 x 8 all polypatella then cemented in place. Knee was brought out into full extension until cement hardened. Final cement check was then performed. Pericapsular tissues were injected with total of 100 cc of combination of 20 cc of Exparel, 30 cc normal saline, 50 cc of quarter percent Marcaine with epinephrine. Patient did receive 1 g tranexamic acid. Tourniquet was then let down for final turn time 63 minutes. Hemostasis assured use electrocautery. Extensor mechanism closed with combination 1 PDS suture #1 Vicryl suture in a [id number] fashion. Extensor mechanism checked found to be intact the subcutaneous tissue then closed with 2 Dexon suture in a buried interrupted fashion. Skin was closed skin feroz. Leg was then cleaned and dried a sterile dressing was Xeroform, 4 x 4's, sterile cast padding, Matthew bandage were applied. Patient then transferred to the recovery room in stable condition. The patient tolerated the procedure well and there are no complications. Yury Alexandra PA-C, was present for the entire procedure. His assistance was required for proper patient positioning, prepping and draping, surgical exposure, retraction, perform the technical details the operation, closure of the wound, placing the sterile bandage. I attest to the content of the Intraoperative Record and any orders documented therein. Any exceptions are noted below.
--- NOTE | 2021-07-12 12:02 | Anesthesiology Progress Note ---
Date of Service July 12, 2021 Anesthesia Post Procedure Vital Signs Vital Signs: Temp Pulse Pulse Resp BP BP Pulse Ox 07/12/21 11:50 64 14 134/68 95 07/12/21 11:40 36.5 C 77 16 135/98 97 07/12/21 11:30 66 18 140/57 L 100 07/12/21 11:20 72 16 134/70 100 07/12/21 11:11 36.7 C 79 14 139/86 99 07/12/21 07:03 36.9 C 66 18 165/72 H 100 Transfer of Care Handoff Completed per policy Notes Mental Status: alert / awake / arousable and participated in evaluation Patient Amnestic to Procedure: Yes Nausea / Vomiting: adequately controlled Pain: adequately controlled Airway Patency, RR, SpO2: stable & adequate BP & HR: stable & adequate Hydration State: stable & adequate Anesthetic Complications: no major complications apparent and Pt Satisfied with anesthetic care
[2021-07-12] MEDS ORDERED: NITROGLYCERIN SL 0.4 MG/TAB TAB SL PRN (12:05)
[2021-07-12] MEDS ORDERED: bisacodyL 10 MG SUPP PR PRN (12:05)
[2021-07-12] MEDS ORDERED: ALUMINUM/MAGNESIUM SUSP 30 ML UDC PO PRN (12:05)
[2021-07-12] MEDS ORDERED: NALOXONE HCL 0.4 MG/1 ML VIAL/CARP IV PRN (12:05)
[2021-07-12] MEDS ORDERED: HYDROmorphone INJ 0.5 MG/0.5 ML SYR IV PRN (12:05)
[2021-07-12] MEDS ORDERED: MAGNESIUM HYDROXIDE SUSP 30 ML UDC PO PRN (12:05)
[2021-07-12] MEDS ORDERED: METOCLOPRAMIDE HCL INJ 5 MG/ML 2 ML VIAL IV PRN (12:05)
[2021-07-12] MEDS: SODIUM CHLORIDE 0.9% 1000ML 1,000 ML IV SCH ×2 (12:15→23:06)
--- NOTE | 2021-07-12 12:19 | XRay Report ---
XR knee RT 1 or 2V routine CLINICAL HISTORY: Surgical Post Op TECHNIQUE: 2 views of the right knee were obtained. Comparison: None available at the time of this dictation. FINDINGS: Patient is status post total knee arthroplasty with expected postsurgical changes including soft tiss ue swelling, subcutaneous emphysema, and surgical staple placement. No periarticular lucency or hardw are fracture is seen. IMPRESSION: Expected postoperative appearance status post placement of total knee arthroplasty. ACT 112: Negative or not required by law. Electronically signed by: Simeon Carey M.D. 07/12/2021 12:18 PM
[2021-07-12] MEDS ORDERED: LOPERAMIDE HCL 2 MG CAP PO PRN (12:54)
[2021-07-12] MEDS ORDERED: MELATONIN 3 MG TAB PO PRN (12:56)
[2021-07-12] MEDS: KETOROLAC TROMETHAMINE 15 MG/ML VIAL IV SCH ×2 (13:11→19:00)
[2021-07-12] MEDS: ACETAMINOPHEN 500 MG TAB PO SCH ×2 (14:32→21:04)
[2021-07-12] MEDS ORDERED: TRANEXAMIC ACID / 0.7% NACL 1,000 MG/100 ML BAG IV SCH (17:15)
[2021-07-12] MEDS: ASCORBIC ACID 500 MG TAB PO SCH (18:04)
[2021-07-12] MEDS ORDERED: SENNA 8.6 MG TAB PO SCH (21:00)
[2021-07-12] MEDS ORDERED: ATORVASTATIN 20 MG TAB PO SCH (21:00)
[2021-07-12] MEDS ORDERED: NON-FORMULARY MEDICATION (Multivitamin Tablet) PO SCH (21:00)
[2021-07-12] MEDS: ceFAZolin 2000MG 2,000 MG/15 ML SYR IV SCH (21:03)
[2021-07-12] MEDS: TAPENTADOL HCL ER 50 MG TABCR PO SCH (21:03)
[2021-07-12] MEDS: ASPIRIN 81 MG ECTAB PO SCH (21:04)
[2021-07-12] MEDS: DOCUSATE SODIUM 100 MG CAP PO SCH (21:05)
[2021-07-12] MEDS: LOSARTAN POTASSIUM 50 MG TAB PO SCH (21:06)
[2021-07-12] MEDS: oxyCODONE HCL IR 5 MG TAB (IMMEDIATE RELEASE) PO PRN (21:06)
[2021-07-12] MEDS: carvediloL 3.125 MG TAB PO SCH (21:06)
[2021-07-13] MEDS: KETOROLAC TROMETHAMINE 15 MG/ML VIAL IV SCH ×3 (01:56→14:24)
[2021-07-13] MEDS: ceFAZolin 2000MG 2,000 MG/15 ML SYR IV SCH (04:18)
[2021-07-13] MEDS: ACETAMINOPHEN 500 MG TAB PO SCH ×2 (06:04→14:23)
[2021-07-13 07:03] LABS: Hematocrit (blood only) 31.2 % (37-47); Hemoglobin 10.2 g/dL (12.0-16.0); Mean Corpuscular Hemoglobin 29.1 pg (25-34); Mean Corpuscular Hgb Conc 32.7 g/dL (32-36); Mean Corpuscular Volume 88.9 fL (80-100); Mean Platelet Volume 9.8 fL (7.4-10.4); Platelet Count 270 K/uL (130-400); RDW Standard Deviation 41.7 fL (36.4-46.3); Red Blood Count 3.51 M/uL (4.2-5.4); White Blood Count 6.57 K/uL (4.8-10.8)
[2021-07-13 07:19] LABS: BUN Creatinine Ratio 21.1 (10-20); Est GFR (Non-African American) 61.2 ml/min; Potassium 3.7 mmol/L (3.5-5.1)
[2021-07-13] MEDS ORDERED: Nursing to Pharmacy Communication SCH (08:00)
[2021-07-13] MEDS ORDERED: dexAMETHasone 10 MG in SYRINGE 0 ML IV SCH (08:00)
[2021-07-13] MEDS: ASCORBIC ACID 500 MG TAB PO SCH (08:31)
[2021-07-13] MEDS: DOCUSATE SODIUM 100 MG CAP PO SCH (08:31)
[2021-07-13] MEDS: ASPIRIN 81 MG ECTAB PO SCH (08:31)
[2021-07-13] MEDS: LOSARTAN POTASSIUM 50 MG TAB PO SCH (08:32)
[2021-07-13] MEDS: carvediloL 3.125 MG TAB PO SCH (08:32)
[2021-07-13] MEDS: TAPENTADOL HCL ER 50 MG TABCR PO SCH (08:42)
[2021-07-13] MEDS: oxyCODONE HCL IR 5 MG TAB (IMMEDIATE RELEASE) PO PRN (08:43)
[2021-07-13] MEDS ORDERED: MULTIVITAMIN TAB PO SCH (09:00)
[2021-07-13] MEDS ORDERED: CHLORTHALIDONE 25 MG TAB PO SCH ×2 (09:00→16:30)
[2021-07-13 16:51] VITALS: BP 153/75; PULSE 68; TEMP 98.1; O2SAT 97
--- NOTE | 2021-07-13 21:26 | Progress Notes ---
DATE OF SERVICE: 07/13/2021. SUBJECTIVE: A 76-year-old white female, now postoperative day 1 from right knee replacement. She is doing pretty well. Had some emesis and nausea a little bit earlier today, but doing much better thi s afternoon. Therapy went well. She did quite well and passed therapy. She is anxious to get home. OBJECTIVE: VITAL SIGNS: Temperature is 36.7. Vital signs are stable. PHYSICAL EXAMINATION: GENERAL: Shows a pleasant middle-aged female. She is sitting up in her bedside chair, looks pretty comfortable. LUNGS: Clear to auscultation. HEART: Has a regular rate and rhythm. ABDOMEN: Soft, nontender, nondistended. EXTREMITIES: Grossly neurovascularly intact except as follows: Examination of the right knee and le g reveals the dressing to be clean, dry and intact. The patient can dorsiflex and plantarflex her fo ot appropriately. She is neurologically intact. She can do a straight leg raise with some effort. LABORATORY DATA: Hemoglobin ____ and hematocrit ____. Electrolytes are stable. ASSESSMENT: A 76-year-old white female postoperative day 1 from right knee replacement, doing pretty well. Had some nausea, which is not too uncommon. It seems like she is doing better now. Did well in therapy. PLAN: 1. DVT prophylaxis includes thigh-high TEDs, SCDs, and aspirin twice a day. 2. PT, OT, weightbear as tolerated. Right total knee protocol. 3. Pain control, doing okay with current pain regimen. She does have some Zofran at home to take as needed for nausea. 4. Disposition: Plan is to discharge her home with some home health today. Job ID: [id number]
--- NOTE | 2021-07-14 08:25 | Discharge Summary ---
Date of Service July 14, 2021 Admission HPI (Per Admitting) DICTATED BY:Felton Redding MD DATE OF ADMISSION: 07/12/2021 CHIEF COMPLAINT: Persistent right knee pain and discomfort. HISTORY OF PRESENT ILLNESS: The patient is a 76-year-old female who now presents for surgical treatment of her right knee. She has got a long history of knee problems and had her left knee replaced just about 2 years ago. She has done pretty well from this. She had a pretty rough initial course, but is doing well now. She continues to be disabled by right knee pain and discomfort. She describes it has gotten worse over the past year. She is treated with injections, which helped a little bit, but only lasts for a very short period of time. She describes her knee is tight and swollen. She limps more as the day goes on. She can only walk a couple of blocks before she has to sit down. She would like to have her right knee replaced. PAST MEDICAL HISTORY: Includes, 1. Elevated cholesterol. 2. Hypertension. 3. Coronary artery disease, status post cardiac catheterization done at [facility]. 4. Gastroesophageal reflux disease. 5. Mild obesity, BMI is 32. PAST SURGICAL HISTORY: Includes, 1. Hysterectomy. 2. Tonsillectomy. 3. Cholecystectomy. 4. Left knee replacement done on 11/11/2019. ALLERGIES: 1. AVELOX. 2. VESICARE. 3. MONISTAT. CURRENT MEDICATIONS: Include, 1. Carvedilol 6.25 mg twice a day. 2. Chlorthalidone. 3. Centrum Silver. 4. Aspirin. 5. Losartan. 6. Diclofenac gel. SOCIAL HISTORY: A 76-year-old white female. Lives in [place]. She is . Does not smoke. FAMILY HISTORY: Significant for diabetes, heart disease, colon cancer, blood clots. REVIEW OF SYSTEMS: Negative for diabetes, neurologic problem, vascular problem, or bleeding disorders. Denies any chest pain or shortness of breath. No history of DVT or PE. No known bleeding problems. PHYSICAL EXAMINATION: GENERAL: Shows a pleasant, elderly female. Looks to be in pretty good health. HEENT: Benign. NECK: Supple. No lymphadenopathy. LUNGS: Clear to auscultation. HEART: Has a regular rate and rhythm. ABDOMEN: Soft, nontender, nondistended. EXTREMITIES: Grossly neurovascularly intact except as follows: Examination of both knees reveals the patient walks independently. Examination of the right knee reveals a moderate to large knee joint effusion. Moderate soft tissue envelope. Her range of motion is about 10 degrees short of full extension to about 100 degrees of flexion. Fairly stiff knee. No pain with hip motion. Examination of the left knee reveals a well-healed incision. She has anatomic alignment to her knee. Range of motion is 0-120. Good straight leg raise. X-RAYS: X-rays of the right knee reveal advanced right knee DJD. She has got slight valgus alignment to her knee with osteophytes laterally. Diffuse osteopenia. Multiple loose bodies in her knee. The left knee replacement looks in good position without signs of problems. ASSESSMENT: A 76-year-old white female almost 2 years out from a left knee replacement with advanced right knee degenerative joint disease. She has failed conservative treatment and would like to have her right knee replaced. PLAN: We will take her to the operating room and do right total knee replacement. The risks and benefits of this procedure were explained to the patient and include, but not limited to DVT, PE, , infection, neurological injury, vascular injury, bleeding problem, pain, limited range of motion, stiffness, failure to relieve her symptoms, incomplete relief of symptoms, need for further surgery in the future, fracture, leg length inequality, nerve palsy, etc. The patient understands and desires to proceed. Informed consent was obtained. She knows to stop her diclofenac 2 weeks preop. She will take the carvedilol on the morning of surgery with a sip of water. She is planning to be discharged to home using [facility]. She will follow up in the clinic at 2 weeks postop. Admission Exam (Per Admitting) PHYSICAL EXAMINATION: GENERAL: Shows a pleasant, elderly female. Looks to be in pretty good health. HEENT: Benign. NECK: Supple. No lymphadenopathy. LUNGS: Clear to auscultation. HEART: Has a regular rate and rhythm. ABDOMEN: Soft, nontender, nondistended. EXTREMITIES: Grossly neurovascularly intact except as follows: Examination of both knees reveals the patient walks independently. Examination of the right knee reveals a moderate to large knee joint effusion. Moderate soft tissue envelope. Her range of motion is about 10 degrees short of full extension to about 100 degrees of flexion. Fairly stiff knee. No pain with hip motion. Examination of the left knee reveals a well-healed incision. She has anatomic alignment to her knee. Range of motion is 0-120. Good straight leg raise. Principal Diagnosis Same as "Discharge Diagnosis" noted below under Discharge Instructions. Discharge Data Procedures Performed Operation Date: 07/12/21 08:50 Actual Procedures p Right Total Knee Replacement(Right) - Felton Redding MD Ordered Studies 07/12/21 05:00 US - OR guided needle placemen Routine Hospital Course (1) Status post total right knee replacement: Admitted post operatively after right total knee replacement. No major post operative complications. Did well with PT and was discharged home with home health on POD 1. PG Care Time/CCT Total # of Minutes Spent Total Time Spent with Patient: Total time spent is greater than 50% in coordination of care (as documented) at patient's floor/unit and/or counseling patient: Discharge Plan Discharge Items Patient Disposition: Home - Home Health Services Reason For Visit: Right Knee Osteoarthritis Discharge Diagnosis: Right Knee Replacement Activity: Per Instructions section Weightbearing: Full weightbearing Non-emergency contact: Surgeon Call non-emergency contact if: you have any medication questions Follow-up/Referrals: Gaurav Dsouza MD [Primary Care Provider] - Diet: Regular Addtl Attending Provider Instructions: ACTIVITY RECOMMENDATIONS: Physical Therapy: * You will go to physical therapy three times each week for four to six weeks after your surgery in order to regain your knee range of motion and to retrain your knee to work properly. * It is just as important to make sure you are getting your knee perfectly straight as it is to regain your knee bend. * Taking a pain pill an hour before therapy can help you have a more productive and comfortable therapy session. Home Exercise: * You were shown a series of exercises (heel props, heel slides, etc.) in the hospital. Do these exercises three to four times each day including the exercises you were shown in physical therapy. Walking: * Get up and walk several times each day. For the first four weeks, try not to stand or walk for more than one hour at a time. If you do stand or walk for more than one hour, you will not hurt anything, but your knee and leg will likely swell. * As you feel comfortable, you may change from the walker or crutches to a cane and then to independent walking. MEDICATIONS: New Medicine: * You will likely be taking one or more of these medications: 1. Oxycodone - A quick and shorter-acting pain medication. Take one to two tablets every six hours to lessen your pain. 2. Aspirin - Thins your blood to lessen the chance of forming a blood clot. * The most common side effects of pain medicine and iron are nausea and constipation. If nausea or constipation is too much of a problem or if you have any questions about your new medicines or doses, call [facility] at . We will try to help you manage these issues. "VERY IMPORTANT TO READ AND REVIEW" Pain: * The immediate post-operative period after knee replacement surgery is often quite painful. * You are given a prescription for pain medicine. You should take it, as directed, when you need it, especially before physical therapy and before going to bed. Pain that interferes with sleep is very common and can last several months. * You will likely need pain medicine for the first four to six weeks. It will not stop all of the pain. The pain will lessen and as you feel better, you may change to milder pain medicine such as Tylenol. * The most common side effects of pain medicine are nausea and constipation, so don't take more than you need. SPECIAL CARE INSTRUCTIONS: TEDs/Elastic Stockings: * The white elastic stockings help limit swelling and prevent blood clots from forming in your legs. The more you wear them, the more they work. * Wear them for six weeks after knee replacement surgery and four weeks after partial knee replacement. Incision Site Care: * Remove dressing postoperative day 2 and then shower. Keep direct shower pressure off the incision site. * After showering, cover feroz with dry gauze and change daily or more frequently if the dressing is getting saturated with drainage. * Use the ANTWON stockings to hold dressing in place. DO NOT apply tape on the skin. * May completely stop using bandage if wound is dry and no drainage * Feroz are removed between 2 and 3 weeks post-op. If your follow-up appointment is made before 2 weeks, please have your appointment re- scheduled. It is too early to remove the feroz. Prevention of Infection: * Take antibiotics one hour before any dental cleaning, dental work, urological procedure, gastrointestinal procedure or any invasive surgery in order to prevent your new joint from getting infected. * You may get the antibiotics from the doctor performing the procedure or you may call our office at [phone] before and we will call in a prescription to the pharmacy of your choice. Things to Watch For: * Drainage from the incision site that occurs more than one week after your surgery. * Severely increased knee/leg pain or swelling. * Increased redness at the incision site. * Fever above 102 degrees Fahrenheit. * Unusual chest pain or shortness of breath. * Unusual pain or burning with urination. Call [facility] at [phone] with any of the above problems or if you have any questions about your medicines or recovery. FOLLOW UP VISIT: Make an appointment to see your doctor for approximately two weeks after surgery for a progress check and staple removal by calling the office at [phone]. Pending Studies at Discharge: No Stand-Alone Forms: My [facility] Interactions, Opioid Pain Management, Smoking Cessation Medications and DC Order Prescriptions: Continued ondansetron HCl 4 mg tablet 4 mg PO Q6 PRN (Reason: nausea) Qty: 30 RF: 0 ketorolac 10 mg tablet 10 mg PO Q6 5 Days Qty: 20 RF: 0 oxycodone 5 mg tablet 5 - 10 mg PO Q6 PRN (Reason: pain) Qty: 40 RF: 0 acetaminophen 500 mg capsule 1,000 mg PO TID Qty: 180 RF: 0 sennosides-docusate sodium [Senokot-S] 8.6-50 mg tablet 1 tab-cap PO DAILY Qty: 14 RF: 0 aspirin [Aspirin Low Dose] 81 mg tablet,delayed release (DR/EC) 81 mg PO BID 45 Days Qty: 90 RF: 0 (DME) Wheeled Walker [facility] See Rx Instructions .ROUTE .MEDSUPPLY Qty: 1 RF: 0 amoxicillin 500 mg tablet 2,000 mg PO ONCE Qty: 4 RF: 3 multivitamin Tablet 1 tab PO QPM RF: 0 chlorthalidone 50 mg Tablet 50 mg PO QAM RF: 0 nitroglycerin [Nitrostat] 0.4 mg Tablet, Sublingual 0.4 mg sublingual UD PRN (Reason: Pain) RF: 0 diclofenac sodium 1 % Gel 2 g TOPICAL QID PRN (Reason: Pain) RF: 0 losartan 50 mg Tablet 50 mg PO BID RF: 0 loperamide 1 dose PO DAILY PRN (Reason: ud) RF: 0 melatonin 5 mg PO HS PRN (Reason: Insomnia) RF: 0 atorvastatin 20 mg Tablet 20 mg PO UD RF: 0 carvedilol 3.125 mg Tablet 3.125 mg PO BID RF: 0 Discontinued tramadol 50 mg Tablet 50 - 100 mg PO Q6H PRN (Reason: pain) Qty: 40 RF: 0 naproxen sodium [Aleve] 220 mg Capsule 220 mg PO HS RF: 0 aspirin 81 mg PO DAILY RF: 0 acetaminophen 325 mg Tablet 325 mg PO QID PRN (Reason: Pain) RF: 0 Discharge Orders: Discharge Order (Routine); Ordered 07/13/21 Ordered By: Felton Lockhart/Other Patient Handouts: DVT Post Op Prevention Admission Data Admit Date/Time: 07/12/21 11:15 Attending Provider: Felton Redding Admit Provider: Felton Redding Primary Care Provider: Gaurav Dsouza Other Providers: [facility],Home Healthcare Other Interventions: Discharge Summary Assessment (RN) Last Done: 07/13/21 15:11
== END 2021-07-13 17:35 | disposition home health service (06) ==
LOC: 3E 06:16 → ASU 06:16